=== PATIENT | male | born 1975 | race Caucasian/White ===

== ENCOUNTER 2022-09-15 21:40 | Emergency (ER) | payer BC ==
[~2022-09-15] VITALS: Ht 185.4 cm; Wt 115.7 kg
--- OUTSIDE RECORDS SUMMARY | ~2022-09-15 | XMS | Continuity of Care Document ---
Demographics + + + | Address | [address] | | | [place] [address] | + + + | Preferred Language | Unknown | + + + | Marital Status | | + + + | Uatsdin Affiliation | Unknown | + + + | Race | White | + + + | Ethnic Group | Not or | + + + Author + + + | Author | [facility] | + + + | Organization | [facility] | + + + | Address | [address] | | | [place] [address] | + + + | Phone | | + + + Care Team Providers + + + + | Care Bit Bender Name | Role | Phone | + + + + Unavailable | Unavailable | + + + + Unavailable | Unavailable | + + + + Unavailable | Unavailable | + + + + Allergies and Intolerances + + + + + + | date | description | facility | reaction | severity | + + + + + + | (no date) | Edema | [facility] | (no reaction) | (no severity) | [facility] | | | + + + + + + Encounters No information. Functional Status No information. Immunizations No information. Medications + + + + | date | description | facility | + + + + | 2021-08-22 00:00 | [facility] | | | BIT/ACETAMINOPHEN | | + + + + Problems + + + + | date | description | facility | + + + + | 2014-09-07 00:00 | Impacted foreign body in | [facility] | | | esophagus | | + + + + | 2014-09-07 00:00 | Impacted foreign body in | [facility] | | | esophagus | | + + + + | 2016-01-08 00:00 | Obstruction of esophagus | [facility] | | | due to food impaction | | + + + + | 2016-01-08 00:00 | Obstruction of esophagus | [facility] | | | due to food impaction | | + + + + | 2022-02-05 00:00 | Foreign body in esophagus | [facility] | + + + + Procedures + + + + | date | description | facility | + + + + | 2022-02-05 00:00 | EXTIRPATION OF MATTER FROM | [facility] | | | ESOPHAGUS, ENDO | | + + + + | 2022-02-05 00:00 | EGD REMOVE FOREIGN BODY | [facility] | + + + + Results/Labs +--------+--------+ +---------+--------+---------+ | test | date | facility | value | unit | notes | +--------+--------+ +---------+--------+---------+ + + | Result panel 1 | + + + + + +-------+ + + | | 2022-02-05 | [facility] | 8.9 | (missing) | (missing) | | (unavailable | [facility] | | | + + + +-------+ + + + + | Result panel 2 | + + + + + +--------+ + + | | 2022-02-05 | [facility] | 72.1 | (missing) | (missing) | | (unavailable | [facility] | | | | + + + +--------+ + + + + | Result panel 3 | + + + + + +--------+ + + | | 2022-02-05 | [facility] | 14.4 | (missing) | (missing) | | (unavailable | [facility] | | | | + + + +--------+ + + + + | Result panel 4 | + + + + + +-------+ + + | | 2022-02-05 | [facility] | 6.1 | (missing) | (missing) | | (unavailable | [facility] | | | + + + +-------+ + + + + | Result panel 5 | + + + + + +-------+ + + | | 2022-02-05 | [facility] | 6.7 | (missing) | (missing) | | (unavailable | [facility] | | | | + + + +-------+ + + + + | Result panel 6 | + + + + + +-------+ + + | | 2022-02-05 | [facility] | 0.7 | (missing) | (missing) | | (unavailable | [facility] | | | + + + +-------+ + + + + | Result panel 7 | + + + + + +------+---------+ + | | 2022-02-05 | [facility] | 99 | mg/dL | (missing) | | (unavailable | [facility] | | | + + + +------+---------+ + + + | Result panel 8 | + + + + + +------+---------+ + | | 2022-02-05 | [facility] | 24 | mg/dL | (missing) | | (unavailable | [facility] | | | + + + +------+---------+ + + + | Result panel 9 | + + + + + +--------+---------+ + | | 2022-02-05 | [facility] | 1.18 | mg/dL | (missing) | | (unavailable | [facility] | | | + + + +--------+---------+ + + + | Result panel 10 | + + + + + +--------+ + + | | 2022-02-05 | [facility] | 5.16 | (missing) | (missing) | | (unavailable | [facility] | | | + + + +--------+ + + + + | Result panel 11 | + + + + + +------+ + + | | 2022-02-05 | [facility] | 76 | (missing) | (missing) | | (unavailable | [facility] | | | + + + +------+ + + + + | Result panel 12 | + + + + + +---------+ + + | | 2022-02-05 | [facility] | 20.33 | (missing) | (missing) | | (unavailable | [facility] | | | + + + +---------+ + + + + | Result panel 13 | + + + + + +-------+ + + | | 2022-02-05 | [facility] | 142 | (missing) | (missing) | | (unavailable | [facility] | | | + + + +-------+ + + + + | Result panel 14 | + + + + + +-------+ + + | | 2022-02-05 | [facility] | 3.6 | (missing) | (missing) | | (unavailable | [facility] | | | + + + +-------+ + + + + | Result panel 15 | + + + + + +-------+ + + | | 2022-02-05 | [facility] | 103 | (missing) | (missing) | | (unavailable | [facility]13[facility] | | | + + + +-------+ + + + + | Result panel 16 | + + + + + +------+ + + | | 2022-02-05 | [facility] | 28 | (missing) | (missing) | | (unavailable | [facility] | | | + + + +------+ + + + + | Result panel 17 | + + + + + +--------+ + + | | 2022-02-05 | [facility] | 14.6 | (missing) | (missing) | | (unavailable | [facility] | | | + + + +--------+ + + + + | Result panel 18 | + + + + + +-------+---------+ + | | 2022-02-05 | [facility] | 9.3 | mg/dL | (missing) | | (unavailable | [facility] | | | + + + +-------+---------+ + + + | Result panel 19 | + + + + + +-------+ + + | | 2022-02-05 | [facility] | 8.5 | (missing) | (missing) | | (unavailable | [facility] | | | + + + +-------+ + + + + | Result panel 20 | + + + + + +-------+ + + | | 2022-02-05 | [facility] | 4.4 | (missing) | (missing) | | (unavailable | [facility] | | | + + + +-------+ + + + + | Result panel 21 | + + + + + +--------+ + + | | 2022-02-05 | [facility] | 15.9 | (missing) | (missing) | | (unavailable | [facility] | | | + + + +--------+ + + + + | Result panel 22 | + + + + + +-------+ + + | | 2022-02-05 | [facility] | 4.1 | (missing) | (missing) | | (unavailable | [facility] | | | + + + +-------+ + + + + | Result panel 23 | + + + + + +--------+ + + | | 2022-02-05 | [facility] | 1.07 | (missing) | (missing) | | (unavailable | [facility]13[facility] | | | + + + +--------+ + + + + | Result panel 24 | + + + + + +-------+ + + | | 2022-02-05 | [facility] | 0.4 | (missing) | (missing) | | (unavailable | [facility] | | | + + + +-------+ + + + + | Result panel 25 | + + + + + +------+ + + | | 2022-02-05 | [facility] | 23 | (missing) | (missing) | | (unavailable | [facility] | | | + + + +------+ + + + + | Result panel 26 | + + + + + +------+ + + | | 2022-02-05 | [facility] | 42 | (missing) | (missing) | | (unavailable | [facility] | | | + + + +------+ + + + + | Result panel 27 | + + + + + +------+ + + | | 2022-02-05 | [facility] | 66 | (missing) | (missing) | | (unavailable | [facility] | | | + + + +------+ + + + + | Result panel 28 | + + + + + +--------+ + + | | 2022-02-05 | [facility] | 46.5 | (missing) | (missing) | | (unavailable | [facility]13[facility] | | | + + + +--------+ + + + + | Result panel 29 | + + + + + +-------+ + + | | 2022-02-05 | [facility] | 8.9 | (missing) | (missing) | | (unavailable | [facility] | | | + + + +-------+ + + + + | Result panel 30 | + + + + + +--------+ + + | | 2022-02-05 | [facility] | 5.16 | (missing) | (missing) | | (unavailable | [facility] | | | + + + +--------+ + + + + | Result panel 31 | + + + + + +--------+ + + | | 2022-02-05 | [facility] | 15.9 | (missing) | (missing) | | (unavailable | [facility]13[facility] | | | + + + +--------+ + + + + | Result panel 32 | + + + + + +--------+ + + | | 2022-02-05 | [facility] | 46.5 | (missing) | (missing) | | (unavailable | [facility]13[facility] | | | + + + +--------+ + + + + | Result panel 33 | + + + + + +--------+ + + | | 2022-02-05 | [facility] | 90.2 | (missing) | (missing) | | (unavailable | 20::08 [facility] | | | + + + +--------+ + + + + | Result panel 34 | + + + + + +--------+ + + | | 2022-02-05 | [facility] | 30.9 | (missing) | (missing) | | (unavailable | 20::08 [facility] | | | + + + +--------+ + + + + | Result panel 35 | + + + + + +--------+ + + | | 2022-02-05 | [facility] | 34.2 | (missing) | (missing) | | (unavailable | [facility]13[facility] | | | + + + +--------+ + + + + | Result panel 36 | + + + + + +--------+ + + | | 2022-02-05 | [facility] | 12.7 | (missing) | (missing) | | (unavailable | [facility]13[facility] | | | + + + +--------+ + + + + | Result panel 37 | + + + + + +-------+ + + | | 2022-02-05 | [facility] | 260 | (missing) | (missing) | | (unavailable | [facility]13[facility]08 [facility] | | | + + + +-------+ + + + + | Result panel 38 | + + + + + +--------+ + + | | 2022-02-05 | [facility] | 72.1 | (missing) | (missing) | | (unavailable | [facility]13[facility]08 [facility] | | | + + + +--------+ + + + + | Result panel 39 | + + + + + +--------+ + + | | 2022-02-05 | [facility] | 90.2 | (missing) | (missing) | | (unavailable | [facility] | | | + + + +--------+ + + + + | Result panel 40 | + + + + + +--------+ + + | | 2022-02-05 | [facility] | 14.4 | (missing) | (missing) | | (unavailable | [facility] | | | + + + +--------+ + + + + | Result panel 41 | + + + + + +-------+ + + | | 2022-02-05 | [facility] | 6.1 | (missing) | (missing) | | (unavailable | [facility] | | | + + + +-------+ + + + + | Result panel 42 | + + + + + +-------+ + + | | 2022-02-05 | [facility] | 6.7 | (missing) | (missing) | | (unavailable | [facility] | | | + + + +-------+ + + + + | Result panel 43 | + + + + + +-------+ + + | | 2022-02-05 | [facility] | 0.7 | (missing) | (missing) | | (unavailable | [facility] | | | + + + +-------+ + + + + | Result panel 44 | + + + + + +------+---------+ + | | 2022-02-05 | [facility] | 99 | mg/dL | (missing) | | (unavailable | [facility]13:08 [facility] | | | + + + +------+---------+ + + + | Result panel 45 | + + + + + +------+---------+ + | | 2022-02-05 | [facility] | 24 | mg/dL | (missing) | | (unavailable | [facility]13:08 [facility] | | | + + + +------+---------+ + + + | Result panel 46 | + + + + + +--------+---------+ + | | 2022-02-05 | [facility] | 1.18 | mg/dL | (missing) | | (unavailable | [facility]13:08 [facility] | | | + + + +--------+---------+ + + + | Result panel 47 | + + + + + +------+ + + | | 2022-02-05 | [facility] | 76 | (missing) | (missing) | | (unavailable | [facility] | | | + + + +------+ + + + + | Result panel 48 | + + + + + +--------+ + + | | 2022-02-05 | [facility] | 30.9 | (missing) | (missing) | | (unavailable | [facility] | | | + + + +--------+ + + + + | Result panel 49 | + + + + + +---------+ + + | | 2022-02-05 | [facility] | 20.33 | (missing) | (missing) | | (unavailable | [facility] | | | + + + +---------+ + + + + | Result panel 50 | + + + + + +-------+ + + | | 2022-02-05 | [facility] | 142 | (missing) | (missing) | | (unavailable | [facility] | | | + + + +-------+ + + + + | Result panel 51 | + + + + + +-------+ + + | | 2022-02-05 | [facility] | 3.6 | (missing) | (missing) | | (unavailable | [facility] | | | + + + +-------+ + + + + | Result panel 52 | + + + + + +-------+ + + | | 2022-02-05 | [facility] | 103 | (missing) | (missing) | | (unavailable | [facility]13[facility]08 [facility] | | | + + + +-------+ + + + + | Result panel 53 | + + + + + +------+ + + | | 2022-02-05 | [facility] | 28 | (missing) | (missing) | | (unavailable | [facility] | | | + + + +------+ + + + + | Result panel 54 | + + + + + +--------+ + + | | 2022-02-05 | [facility] | 14.6 | (missing) | (missing) | | (unavailable | [facility]13[facility] | | | + + + +--------+ + + + + | Result panel 55 | + + + + + +-------+---------+ + | | 2022-02-05 | [facility] | 9.3 | mg/dL | (missing) | | (unavailable | [facility]13:08 [facility] | | | + + + +-------+---------+ + + + | Result panel 56 | + + + + + +-------+ + + | | 2022-02-05 | [facility] | 8.5 | (missing) | (missing) | | (unavailable | [facility] | | | + + + +-------+ + + + + | Result panel 57 | + + + + + +-------+ + + | | 2022-02-05 | [facility] | 4.4 | (missing) | (missing) | | (unavailable | [facility] | | | + + + +-------+ + + + + | Result panel 58 | + + + + + +-------+ + + | | 2022-02-05 | [facility] | 4.1 | (missing) | (missing) | | (unavailable | [facility]13[facility] | | | + + + +-------+ + + + + | Result panel 59 | + + + + + +--------+ + + | | 2022-02-05 | [facility] | 34.2 | (missing) | (missing) | | (unavailable | [facility]13[facility] | | | + + + +--------+ + + + + | Result panel 60 | + + + + + +--------+ + + | | 2022-02-05 | [facility] | 1.07 | (missing) | (missing) | | (unavailable | [facility]13[facility] | | | + + + +--------+ + + + + | Result panel 61 | + + + + + +-------+ + + | | 2022-02-05 | [facility] | 0.4 | (missing) | (missing) | | (unavailable | [facility] | | | + + + +-------+ + + + + | Result panel 62 | + + + + + +------+ + + | | 2022-02-05 | [facility] | 23 | (missing) | (missing) | | (unavailable | [facility] | | | + + + +------+ + + + + | Result panel 63 | + + + + + +------+ + + | | 2022-02-05 | [facility] | 42 | (missing) | (missing) | | (unavailable | [facility] | | | + + + +------+ + + + + | Result panel 64 | + + + + + +------+ + + | | 2022-02-05 | [facility] | 66 | (missing) | (missing) | | (unavailable | [facility] | | | + + + +------+ + + + + | Result panel 65 | + + + + + +--------+ + + | | 2022-02-05 | [facility] | 12.7 | (missing) | (missing) | | (unavailable | [facility] | | | + + + +--------+ + + + + | Result panel 66 | + + + + + +-------+ + + | | 2022-02-05 | [facility] | 260 | (missing) | (missing) | | (unavailable | [facility]13:08 [facility] | | | + + + +-------+ + + + + | Result panel 67 | + + + + + + + + + | | 2022-02-05 | [facility] | NEGATIVE | (missing) | (missing) | | (unavailable | 20[facility]21:08 [facility] | | | + + + + + + + + + | Result panel 68 | + + + + + + + + + | | 2022-02-05 | [facility] | NEGATIVE | (missing) | (missing) | | (unavailable | 20[facility]21:08 [facility] | | | + + + + + + + + + | Result panel 69 | + + + + + + + + + | | 2022-02-05 | [facility] | NEGATIVE | (missing) | (missing) | | (unavailable | 20[facility]21:08 [facility] | | | + + + + + + + + + | Result panel 70 | + + + + + + + + + | | 2022-02-05 | [facility] | NEGATIVE | (missing) | (missing) | | (unavailable | 20[facility]21:08 [facility] | | | + + + + + + + + + | Result panel 71 | + + + + + + + + + | | 2022-02-05 | [facility] | NEGATIVE | (missing) | (missing) | | (unavailable | [facility]21:08 [facility] | | | + + + + + + + + + | Result panel 72 | + + + + + + + + + | | 2022-02-05 | [facility] | NEGATIVE | (missing) | (missing) | | (unavailable | 20[facility]21:08 [facility] | | | + + + + + + + + + | Result panel 73 | + + + + + + + + + | | 2022-02-05 | [facility] | NEGATIVE | (missing) | (missing) | | (unavailable | 20[facility]21:08 [facility] | | | + + + + + + + + + | Result panel 74 | + + + + + + + + + | | 2022-02-05 | [facility] | NEGATIVE | (missing) | (missing) | | (unavailable | 20[facility]21:08 [facility] | | | + + + + + + + + + | Result panel 75 | + + + + + +--------+ + + | | 2022-02-05 | [facility] | 12.4 | (missing) | (missing) | | (unavailable | 20[facility]24:08 [facility] | | | + + + +--------+ + + + + | Result panel 76 | + + + + + +--------+ + + | | 2022-02-05 | [facility] | 0.96 | (missing) | (missing) | | (unavailable | 20[facility]24:08 [facility] | | | + + + +--------+ + + + + | Result panel 77 | + + + + + +--------+ + + | | 2022-02-05 | [facility] | 12.4 | (missing) | (missing) | | (unavailable | [facility]24:08 [facility] | | | + + + +--------+ + + + + | Result panel 78 | + + + + + +--------+ + + | | 2022-02-05 | [facility] | 0.96 | (missing) | (missing) | | (unavailable | [facility]24:08 [facility] | | | + + + +--------+ + + Social History No information. Vital Signs + + + +---------+ | date | measurement | value | units | + + + +---------+ | 2022-02-05 00:00 | BMI | 34.2 | kg/m2 | + + + +---------+ | 2022-02-05 00:00 | BP_diastolic | 86 | mmHg | + + + +---------+ | 2022-02-05 00:00 | BP_systolic | 140 | mmHg | + + + +---------+ | 2022-02-05 00:00 | heart_rate | 76 | /min | + + + +---------+ | 2022-02-05 00:00 | height_metric | 185.42 | cm | + + + +---------+ | 2022-02-05 00:00 | height_standard | 73 | in | + + + +---------+ | 2022-02-05 00:00 | o2_saturation | 99 | % | + + + +---------+ | 2022-02-05 00:00 | respiration_rate | 17 | /min | + + + +---------+ | 2022-02-05 00:00 | temperature_metric | 36.72 | C | | | | | | + + + +---------+ | 2022-02-05 00:00 | | 98.1 | F | | | temperature_standar | | | | | d | | | + + + +---------+ | 2022-02-05 00:00 | weight_metric | 117.7 | kg | + + + +---------+ | 2022-02-05 00:00 | weight_standard | 259.48 | lb | + + + +---------+"
[~2022-09-15 21:40] MED LIST: NORCO 5-325 TA1 EACH PO
[2022-09-15] MEDS ORDERED: PREDNISONE20 MG PO (23:30)
[2022-09-15] MEDS ORDERED: ZITHROMAX250 MG PO (23:30)
[2022-09-16 00:04] VITALS: BP 144/94
== END 2022-09-15 23:58 | disposition home or self-care (01) ==
LOC: ED 21:40
DX: J45.909 Unspecified asthma, uncomplicated (principal); Z20.822 Contact with and (suspected) exposure to COVID-19; Z88.2 Allergy status to sulfonamides
CPT/HCPCS: 36415; 71045; 80053; 83880; 85025; 87502; 94640; 99285-25; A9270; C9803; J7512; U0002

== ENCOUNTER 2023-10-10 06:27 | Day surgery (SDC) | payer BC ==
[~2023-10-10] VITALS: Ht 436.9 cm; Wt 119.0 kg
[~2023-10-10 06:27] MED LIST changes: +MIDAZOLAM HCL 5 MG/5 ML VIAL IV PRN; +PREDNISONE20 MG PO; +ZITHROMAX250 MG PO; +fentaNYL citrate 100 MCG/2 ML VIAL IV PRN
[2023-10-10 06:37] VITALS: BP 140/82
[2023-10-10] MEDS ORDERED: ADVAIR HFA 230-12 GM INH (06:40)
[2023-10-10] MEDS ORDERED: ROSUVASTATIN CA40 MG PO (06:40)
[2023-10-10] MEDS ORDERED: MIDAZOLAM HCL 5 MG/5 ML VIAL ONE (06:52)
[2023-10-10] MEDS ORDERED: fentaNYL citrate 100 MCG/2 ML VIAL ONE (06:52)
[2023-10-10] MEDS ORDERED: LIDOCAINE HCL 1% 5 ML SDV INJ ONE (07:00)
[2023-10-10] MEDS ORDERED: IBLOOD GLUCOSE TEST STRIP 1 EA TEST VI PRN (07:00)
[2023-10-10] MEDS ORDERED: LACTATED RINGER'S 1,000 ML IV SCH (07:00)
--- NOTE | 2023-10-10 07:23 | NUR ---
VISITED DURING SPIRITUAL CARE ROUNDS. PT APPEARED TO BE IN GOOD SPIRITS, NO SIGNS OF ANXIETY, DENIED IMMEDIATE NEEDS. VIDEOGRAPHER PROVIDED SUPPORTIVE CARE, HOSPITALITY, PRAYER. PT EXPRESSED GRATITUDE.
--- NOTE | 2023-10-10 08:14 | NUR ---
10/10/23 0814 Sheets,Sherita [id number] PT ARRIVED TO PACU ON 3L VIA NC, PT WAKES AND DENIES CONCERNS. PLAN OF CARE DISCUSSED AND PT EASILY FALLS BACK TO SLEEP WITH SMALL AMOUNT OF SNORING NOTED. PT ENCOURAGED TO PASS GAS NEEDED.
[2023-10-10 08:33] VITALS: BP 110/86
--- NOTE | 2023-10-10 11:02 | OR ---
[facility] [address], [place] [address] Signed DATE OF OPERATION: 10/10/2023 SURGEON: Deni Guerrero MD PREOPERATIVE DIAGNOSES: 1. Chronic esophageal dysphagia, greater than five years. 2. Screening. POSTOPERATIVE DIAGNOSES: 1. Unremarkable upper endoscopy. 2. Minimal left-sided diverticulosis. PROCEDURES: 1. Esophagogastroduodenoscopy with CLOtest and biopsy of the duodenum, pyloric bulb, antrum, distal esophagus, middle esophagus, and proximal esophagus. 2. Colonoscopy without biopsy. ESTIMATED BLOOD LOSS: None. INDICATIONS FOR THE PROCEDURE: Patricio is a 47-year-old gentleman asked to see me for both upper and lower endoscopy. He really has no lower GI complaints. There is no family history of colon cancer or polyps; however, Patricio is describing esophageal dysphagia for over five years. I have helped him personally twice to remove meat from his esophagus. He told me that he has had it done at least five times. He did a barium swallow in 2016 and actually did very well. He has never had esophageal manometry or 24-hour pH testing. He said he has to be very careful when he eats and he asked to chew well and always swallow some liquid after he eats. It has now become a daily occurrence. His happens to be a registered nurse. It has become an issue for the whole family. She finally got him to come back for evaluation. We repeated the barium swallow and there were no strictures or mass in the esophagus. There was no hiatal hernia or acid reflux during the test; however, he does have diffuse esophageal dysmotility and the liquids collected in his midesophagus as well as the barium pill collected around the aortic arch, but it went through with some crackers and some additional clear liquids. In the office, I had given Patricio and his booklets on both upper and lower endoscopy. We had reviewed those in detail. He understands there is risk including, but not limited to gas bloating, crampy abdominal pain, bleeding, perforation requiring surgery, and missed diagnosis. We have also discussed multiple times down the idea of esophageal manometry and 24-hour pH testing. We also reviewed the written instructions for a bowel prep line Electronically Signed By: DENI GUERRERO MD 10/10/23 1102 PATIENT NAME: PATRICIO FOWLER OPERATIVE REPORT DATE OF : 71 REPORT #: [id number] PHYSICIAN: DENI GUERRERO MD PCP: JAME RODAS MD REPORT IS CONFIDENTIAL AND NOT TO BE RELEASED WITHOUT AUTHORIZATION [facility] [address], [place] [address] Signed by line. He understands the need for IV conscious sedation. He is aware that an adult person has to take him home afterwards. He also told me that he went through a cardiac evaluation and it came out negative, but a little bit of calcification on the coronary arteries. He said the only thing he is using for the stomach is Tums as needed. He and his had expressed understanding, wished to proceed with both upper and lower endoscopy. DESCRIPTION OF PROCEDURE: EGD: Patricio was taken into our endoscopy suite and placed in the supine semi-recumbent position. The posterior oropharynx was anesthetized with lidocaine spray. A bite block was utilized for the case. The adult gastroscope was introduced and advanced under direct visualization of camera into the duodenum without difficulty. His entire duodenum, pyloric channel, and stomach appeared unremarkable. We went ahead and took biopsies of the duodenum and pyloric channel and antrum for pathologic review. We took an additional biopsy from the antrum for CLOtest. Upon retroflexion of scope, I really cannot appreciate a hiatal hernia. The scope was withdrawn up through the area of the GE junction, which was compliant without stricture. There was no gastric or esophageal varices. He did have a little irritation around the Z-line at 35 cm. I suspect that may be from trying to get the food through his esophagus. There was no Sims mucosa. He really did not have any distal middle or upper esophagitis. We went ahead and took biopsies in the distal middle and upper esophagus because of his history of dysmotility and dysphagia. After this, the gas was suctioned out and the gastroscope removed. Patricio tolerated the upper endoscopy quite well. Colonoscopy: Patricio was rotated into the left lateral decubitus position. He was maintained on IV sedation with Versed and fentanyl. He took a total of 125 mcg fentanyl and 8 mg of Versed total. Digital rectal exam was performed. He had good sphincter tone. There were no masses. No external hemorrhoids. The adult colonoscope was introduced and advanced under direct visualization of camera up into the cecum itself. His prep was quite excellent. We could easily see the appendiceal orifice and ileocecal valve. The scope was then slowly withdrawn. We took several pictures throughout for photodocumentation. He does have some left-sided diverticulosis. They were [id number] in size, few in number and scattered about. Once in the rectum, the scope was retroflexed and really no pathology above the anal canal. After this, the gas was suctioned out and colonoscope removed. Patricio tolerated his lower endoscopy quite well. RECOMMENDATIONS: I will see Patricio back in my office in 7 to 14 days to review his results. He most likely needs esophageal manometry and 24-hour pH testing to evaluate esophageal dysmotility. Electronically Signed By: DENI GUERRERO MD 10/10/23 1102 PATIENT NAME: PATRICIO FOWLER OPERATIVE REPORT DATE OF : 71 REPORT #: [id number] PHYSICIAN: DENI GUERRERO MD PCP: JAME RODAS MD REPORT IS CONFIDENTIAL AND NOT TO BE RELEASED WITHOUT AUTHORIZATION [facility] [address], [place] [address] Signed Deni Guerrero MD ALB/MODL /[id number] cc: MD Jame Guzman MD Copies: DENI GUERRERO MD, ROBERT D DMD ~ Electronically Signed By: DENI GUERRERO MD 10/10/23 1102 PATIENT NAME: PATRICIO FOWLER OPERATIVE REPORT DATE OF : 71 REPORT #: [id number] PHYSICIAN: DENI GUERRERO MD PCP: JAME RODAS MD REPORT IS CONFIDENTIAL AND NOT TO BE RELEASED WITHOUT AUTHORIZATION
--- NOTE | 2023-10-12 10:41 | PATH ---
[facility] [address] [place], [place] [address] Signed SPECIMEN(S): A DUODENAL BIOPSY SPECIMEN(S): B DUODENAL BULB BIOPSY SPECIMEN(S): C ANTRUM/PYLORUS BIOPSY SPECIMEN(S): D LOWER ESOPHAGEAL BIOPSY SPECIMEN(S): E MIDDLE ESOPHAGEAL BIOPSY SPECIMEN(S): F UPPER ESOPHAGEAL BIOPSY SPECIMEN SOURCE: A. DUODENAL BIOPSY B. DUODENAL BULB BIOPSY C. ANTRUM/PYLORUS BIOPSY D. LOWER ESOPHAGEAL BIOPSY E. MIDDLE ESOPHAGEAL BIOPSY F. UPPER ESOPHAGEAL BIOPSY CLINICAL HISTORY: Esophageal dysphagia, esophageal stricture, GERD, screening colonoscopy FINAL PATHOLOGIC DIAGNOSIS: A. 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 B. Duodenal bulb, biopsy: - Chronic duodenitis with Darlene's gland hyperplasia, negative for active inflammation or significant villous blunting. C. Antrum/pylorus, biopsies: - Mild chronic gastritis with vascular congestion, negative for active inflammation. - No H. pylori bacteria are detected by HE stain. D. Lower esophagus, biopsies: - Mild chronic esophagitis with increased eosinophils (up to 6 per high-power field), negative for Sims's metaplasia. E. Middle esophagus, biopsy: - Mild chronic esophagitis with focally increased eosinophils (up to 2 per high-power field). F. Upper esophagus, biopsy: - Benign squamous esophageal mucosa, negative for esophagitis or increased eosinophils. AMB MICROSCOPIC EXAMINATION: PATIENT NAME: ANNYLOU PATHOLOGY DATE OF : 71 REPORT #: [id number] PHYSICIAN: FESTUS DIAZ PCP: JAME RODAS MD REPORT IS CONFIDENTIAL AND NOT TO BE RELEASED WITHOUT AUTHORIZATION [facility] [address] [place], [place] [address] Signed Histologic sections of all submitted blocks are examined by light microscopy. These findings, together with the gross examination, support the pathologic diagnosis. GROSS DESCRIPTION: A. The specimen, labeled and designated "Anny, duodenal biopsy," is received in formalin and consists of one mckeon soft tissue fragment, 0.3 cm. Entirely submitted in (A1). B. The specimen, labeled and designated "Anny, duodenal bulb biopsy," is received in formalin and consists of one mckeon soft tissue fragment, 0.3 cm. Entirely submitted in (B1). C. The specimen, labeled and designated "Anny, antrum/pylorus biopsy," is received in formalin and consists of one mckeon soft tissue fragment, 0.3 cm. Entirely submitted in (C1). D. The specimen, labeled and designated "Anny, lower esophageal biopsy," is received in formalin and consists of one mckeon soft tissue fragment, 0.3 cm. Entirely submitted in (D1). E. The specimen, labeled and designated "Anny, middle esophageal biopsy," is received in formalin and consists of one mckeon soft tissue fragment, 0.3 cm. Entirely submitted in (E1). F. The specimen, labeled and designated "Anny, upper esophageal biopsy," is received in formalin and consists of one mckeon soft tissue fragment, 0.2 cm. Entirely submitted in (F1). VB (under the direct supervision of a pathologist) The Gross Description was prepared using a voice recognition system. The report was reviewed for accuracy; however, sound-alike word errors, addition and/or deletions may occur. If there is any question about this report, please contact Client Services. ADDITIONAL NOTES: Immunohistochemical and/or in situ hybridization studies if performed in this case included appropriate positive controls that reacted as expected. This test was developed and its performance characteristics determined by [facility]. It has not been cleared or approved by the U.S. Food and Drug Administration. The FDA has determined that such clearance or approval is not necessary. This test is used for clinical purposes. It should not be regarded as investigational or for research. [facility] is certified under the Clinical Laboratory Improvement Amendments of 1988 (CLIA) as qualified to perform high complexity clinical laboratory testing. PATIENT NAME: LOU FOWLER PATHOLOGY DATE OF : 71 REPORT #: [id number] PHYSICIAN: FESTUS DIAZ PCP: JAME RODAS MD REPORT IS CONFIDENTIAL AND NOT TO BE RELEASED WITHOUT AUTHORIZATION [facility] [address] [place] [id number] Signed PERFORMING LABORATORY: Technical component was performed by [facility], [address] [place] [id number] (CLIA# [id number]). Professional interpretation was performed by [facility] - [facility] [address] [place] [id number] Diagnostician: Jazz Izquierdo MD Pathologist Electronically Signed 10/12/2023 Copies: ~ PATIENT NAME: LOU FOWLER PATHOLOGY DATE OF : 71 REPORT #: [id number] PHYSICIAN: FESTUS DIAZ PCP: JAME RODAS MD REPORT IS CONFIDENTIAL AND NOT TO BE RELEASED WITHOUT AUTHORIZATION
== END 2023-10-10 08:38 | disposition home or self-care (01) ==
LOC: DS 06:27
PROVIDERS: ATTEND Colon & Rectal Surgery
PROC: 0DB68ZX Excision of Stomach, Via Natural or Artificial Opening Endoscopic, Diagnostic (ICD-10-PCS; 2023-10-10)
PROC: 0DB18ZX Excision of Upper Esophagus, Via Natural or Artificial Opening Endoscopic, Diagnostic (ICD-10-PCS; 2023-10-10)
PROC: 0DB28ZX Excision of Middle Esophagus, Via Natural or Artificial Opening Endoscopic, Diagnostic (ICD-10-PCS; 2023-10-10)
PROC: 0DB38ZX Excision of Lower Esophagus, Via Natural or Artificial Opening Endoscopic, Diagnostic (ICD-10-PCS; 2023-10-10)
PROC: 0DJD8ZZ Inspection of Lower Intestinal Tract, Via Natural or Artificial Opening Endoscopic (ICD-10-PCS; principal; 2023-10-10 07:30)
PROC: 0DB98ZX Excision of Duodenum, Via Natural or Artificial Opening Endoscopic, Diagnostic (ICD-10-PCS; 2023-10-10 07:30)
DX: Z12.11 Encounter for screening for malignant neoplasm of colon (principal); K57.30 Diverticulosis of large intestine without perforation or abscess without bleeding; K29.50 Unspecified chronic gastritis without bleeding; K29.80 Duodenitis without bleeding; K21.00 Gastro-esophageal reflux disease with esophagitis, without bleeding; I25.10 Atherosclerotic heart disease of native coronary artery without angina pectoris; Z79.899 Other long term (current) drug therapy; Z88.2 Allergy status to sulfonamides
CPT/HCPCS: 36415; 87077; 99153; G0500; J2250; J3010; J7121